=== PATIENT | female | born 1980 | race Hispanic/Latino ===

== ENCOUNTER → 2020-09-30 06:28 | Outpatient (CLI) | payer OTHER, SELFPAY ==
[2020-09-30 20:07] LABS: SARS-CoV-2 RNA PCR Negative
== END ==
PROVIDERS: PCP Physician Assistant; Visit Provider Physician Assistant
DX: Z20.822 Contact with and (suspected) exposure to COVID-19 (principal); R05 Cough; R06.02 Shortness of breath
CPT/HCPCS: C9803; U0003; U0005

== ENCOUNTER 2023-04-14 09:38 | Day surgery (SDC) | payer OTHER, SELFPAY ==
[2023-04-06 09:13] VITALS: BMI 27.3
--- NOTE | 2023-04-12 06:28 | PM.IMHP ---
H&P: HPI History of Present Illness Date/Time: 04/12/23 06:28 Chief Complaint: excessive irregular bleeding refractory to medical therapy Narrative: 42-year-old female with excessive heavy bleeding admitted for hysteroscopy dilatation curettage risks and benefits reviewed including exclusive , aspiration bleeding, transfusion, perforation injury to bowel, bladder, ureters, or other internal organs with need for open laparotomy and repair were all reviewed. She received the [facility] [place] handouts entitled hysteroscopy dilatation curettage respectively. She had all questions and to proceed PMF Surgical History Surgical History No history of previous surgery Social History Social History Smoking status: Former smoker Tobacco type: cigarettes Alcohol intake: current Drinks per week: 2 Alcohol use details: socially once per week Substance use: never Substance use type: does not use Living arrangements: with family Spiritual care concerns: No Meds Home Medications and Allergies Home Medications Medication Instructions Recorded Confirmed Type acetaminophen 300 mg-codeine 30 mg 1 tablet PO QID PRN pain or cough 05/11/22 Rx tablet #25 tabs norgestimate 0.25 mg-ethinyl See Rx Instructions .Route 05/11/22 04/06/23 Rx estradiol 35 mcg tablet (Kalyn) .COMPLEX #28 tabs Allergies Allergy/AdvReac Type Severity Reaction Status Date / Time No Known Allergies Allergy Unknown Verified 04/26/22 14:09 Exam Const: General: cooperative, healthy appearing and comfortable Nutritional Appearance: average body habitus Orientation/consciousness: oriented to person, oriented to place and oriented to time HENMT: Head: normal to inspection Resp: Effort & Inspection: normal respiratory effort Cardio: Rate: regular rate Rhythm: regular rhythm Heart sounds: S1 normal heart sound present and S2 normal heart sound present GI: Inspection: normal to inspection : External Female Exam: normal external appearance Speculum Exam - Vagina: normal appearance of the vagina and vaginal bleeding Speculum Exam - Cervix: normal appearance of the cervix Bimanual exam- vagina & uterus: enlarged Bimanual Exam- Adnexa, other: normal adnexae Assessment and Plan Assessment and plan (1) Heavy vaginal bleeding due to contraceptive implant use: Status: Acute Plan hysteroscopy/dilatation curettage
--- NOTE | 2023-04-13 10:34 | WPDANESEPPF ---
Anes - Initial Pre Proc Eval Procedure: Operation Date: 04/14/23 12:00 Proposed Procedures p Hysteroscopy with Dilation and Curettage, Polypectomy - Tomy Lerner MD Date/Time: 04/13/23 10:34 Surgeon: Tomy Lerner MD Pre Op Diagnosis: Irregular Bleeding, Uterine Polyp Patient Data Age: 42 Gender: F Height: 1.57 m Weight: 68 kg Allergies Allergy/AdvReac Type Severity Reaction Status Date / Time No Known Allergies Allergy Unknown Verified 04/26/22 14:09 Home Medications Medication Instructions Recorded Confirmed Type norgestimate 0.25 mg-ethinyl See Rx Instructions .Route 05/11/22 04/14/23 Rx estradiol 35 mcg tablet (Kalyn) .COMPLEX #28 tabs oxycodone-acetaminophen 5 mg-325 1 tablet PO Q4H PRN pain #10 tabs 04/14/23 Rx mg tablet Patient hx anesthesia problems: none Family hx anesthesia problems: none Results Review: All pre-operative results and documents have been reviewed as part of the pre-operative evaluation. [facility] Surgical History Surgical History No history of previous surgery Social History Social History Smoking status: Former smoker Tobacco type: cigarettes Alcohol intake: current Drinks per week: 2 Alcohol use details: socially once per week Substance use: never Substance use type: does not use Living arrangements: with family Spiritual care concerns: No Anes - Eval Final PreProcedure Day of Procedure 04/13/23 10:34 Patient weight: overweight Heart: regular rate and rhythm Lungs: clear to auscultation Airway: Mallampati scale class II Neurological: alert and oriented Last oral intake: >/= 8 hours ASA classification: II Emergent: no Anesthetic plan: proceed Anesthesia type and monitoring: general GIVS and standard monitoring Results Review: All pre-operative results and documents have been reviewed as part of the pre-operative evaluation. Informed Consent: The patient's anesthetic plan and its attendant risks and benefits were discussed with the patient/family/POA. Questions were solicited and answers provided to the satisfaction of the patient/family/POA.
--- NOTE | 2023-04-14 06:50 | WPDHPUPDATE1 ---
History and Physical Update Update Date/Time: 04/14/23 06:50 History and Physical has been reviewed, including an updated exam of the patient. There are NO changes in the patient's condition. Risks, benefits, and alternatives have been discussed and questions answered. Patient agrees to proceed with procedure.
[2023-04-14] MEDS: LACTATED RINGERS 1,000 ML 30 ML IV CONT (11:03)
[2023-04-14] MEDS: ACETAMINOPHEN 500 MG TABLET 1000 MG PO (11:03)
[2023-04-14 11:09] VITALS: BP 141/89; PULSE 80; RESP 14; TEMP 36.6; O2SAT 99; BMI 28.2
[2023-04-14] MEDS: LIDOCAINE HCL 1% LOCAL INJ 20 ML VIAL 18 ML INFILTRATE (12:16)
--- NOTE | 2023-04-14 12:18 | P.OP_ITS ---
Procedure Note - Detailed Date of Procedure 04/14/23 Pre-op Diagnosis Irregular Bleeding, Uterine Polyp Post-op Diagnosis Same Procedure Performed Hysteroscopy/ dilatation curettage/polypectomy Surgeon Tomy Lerner MD Anesthesia MAC and Local Indications this 42-year-old female with suspected polyp in excessive heavy bleeding Findings normal-appearing endometrial canal with some blood clots and a small endometrial polyp Description of Procedure patient was prepped draped in the normal sterile fashion placed in the dorsal lithotomy position. Under excellent IV sedation weighted speculum placed in p osterior fornix vagina. Anterior lip of the cervix grasped with a single-tooth tenaculum. Cc 1% xylocaine anesthesia placed at 2, 4, 8, 10:00 a.m. the cervix. Uterus sounded to 8cm and 0 station fragmented: Passage of 5mm visualizing hysteroscope. Normal saline was used as visualizing medium. The uterine polyp was seen. The foot each fallopian tube os could be seen. There were some blood clots and irregular endometrium. The uterus was then scraped with [id number] after breaking the polyp up into pieces. The instruments were withdrawn when a good grating sound was heard. Patient went to recovery in satisfactory condition. All sponge, needle, instrument counts were there were no immediate complications Estimated Blood Loss 5 Drains No Pathology Yes Complications No immediate complications Condition Stable Disposition PACU
[2023-04-14 12:23] VITALS: BP 118/74; PULSE 90; RESP 14; O2SAT 98
[2023-04-14 12:45] VITALS: BP 122/89; PULSE 83; RESP 14; O2SAT 96
[2023-04-14 13:10] VITALS: BP 126/79; PULSE 78; RESP 14; O2SAT 97
== END 2023-04-14 13:20 | disposition home or self-care (01) ==
PROVIDERS: PCP Family Medicine Adolescent Medicine; Visit Provider Obstetrics & Gynecology
PROC: 0U5B8ZZ Destruction of Endometrium, Via Natural or Artificial Opening Endoscopic (ICD-10-PCS; CPT 58563; principal; 2023-04-14 12:00)
DX: N92.5 Other specified irregular menstruation (principal); N84.1 Polyp of cervix uteri
CPT/HCPCS: 58558

== ENCOUNTER 2023-04-14 14:48 | Outpatient (NON) | payer OTHER, SELFPAY | END 2023-04-14 14:49 | disposition home or self-care (01) | LOC: ANHLAB 04-15 14:50 | PROVIDERS: PCP Family Medicine Adolescent Medicine; Visit Provider Obstetrics & Gynecology | DX: D25.9 Leiomyoma of uterus, unspecified (principal) | CPT/HCPCS: 88305 ==

== ENCOUNTER 2024-08-23 10:09 | Outpatient (CLI) | payer OTHER, SELFPAY ==
[2024-08-23 10:47] LABS: Alanine Aminotransferase 31 U/L (6-35); Albumin Level 4.9 g/dL (3.5-5.1); Alkaline Phosphatase 84 U/L (38-126); Anion Gap 12 mmol/L (4-12); Aspartate Amino Transferase 35 U/L (14-36); Bilirubin,Total 0.7 mg/dL (0.2-1.3); Blood Urea Nitrogen 9 mg/dL (7-17); Calcium 9.1 mg/dL (8.4-10.2); Carbon Dioxide 23 mmol/L (22-30); Chloride 103 mmol/L (98-107); Cholesterol 277 mg/dL (0-200); Estimated Glomerular Filt Rate > 60; Glucose 95 mg/dL (65-110); HDL Direct 45 mg/dL; Potassium 4.4 mmol/L (3.4-5.0); Sodium 138 mmol/L (137-145); Triglycerides 144 mg/dL (<150)
[2024-08-23 10:58] LABS: LDL Cholesterol Direct 179 mg/dL
[2024-08-23 11:42] LABS: Hepatitis C Virus Antibody Negative (Negative)
[2024-08-23 12:11] LABS: Add Urine Microscopic? YES; Appearance Urine Clear (Clear); Bacteria Urine Rare /hpf; Bilirubin Urine Negative (Negative); Blood Urine Trace (Negative); Color Urine Yellow (Yellow); Glucose Urine UA Negative (Negative); Ketones Urine Negative (Negative); Leukocyte Esterase Ur Negative LEU/UL (Negative); Nitrate Urine Negative (Negative); Non Pathogenic Casts 0-2; Protein Urine Negative (Negative); RBC Urine 0-2 /hpf (0-2); Specific Grav Ur 1.019 (1.001-1.035); Squamous Epithelial Cell Urine Occasional /hpf (Few); Urobilinogen Urine 0.2 mg/dL (<2.0); WBC Urine 0-5 /hpf (0-3); pH Urine 5.5 (5.0-9.0)
[2024-08-23 18:24] LABS: Hemoglobin A1C 5.1 % (<5.7)
== END 2024-08-23 10:10 | disposition home or self-care (01) ==
LOC: ANHLAB 10:11
PROVIDERS: PCP Family Medicine Adolescent Medicine; Visit Provider Family Medicine
DX: R31.9 Hematuria, unspecified (principal); Z13.6 Encounter for screening for cardiovascular disorders; Z13.1 Encounter for screening for diabetes mellitus; Z11.59 Encounter for screening for other viral diseases
CPT/HCPCS: 36415; 80053; 80061; 81001; 83036; 86803

== ENCOUNTER 2024-08-23 10:38 | Outpatient (CLI) | payer OTHER, SELFPAY ==
--- NOTE | ~2024-08-23 | MM_ITS ---
EXAMINATION: MM screening shoaib BI w jeronimo HISTORY: Screening TECHNIQUE: Craniocaudal and mediolateral oblique 3-D tomosynthesis images were obtained and synthetic 2-D images were generated. CAD analysis was submitted and interpreted. COMPARISON: No prior mammogram is available for comparison at this institution. BREAST PARENCHYMAL COMPOSITION: Dense: The breasts are heterogeneously dense, which may obscure small masses FINDINGS: There are focal asymmetries medially in the left breast on CC view, middle-posterior depth. The right breast is stable without evidence for malignancy. IMPRESSION: 1. Left breast asymmetries medially on CC view. 2. Additional mammographic views and possible breast ultrasound are recommended. BI-RADS Category 0: Incomplete: Needs additional imaging evaluation. Reviewed, dictated and finalized at location [facility]. IMPRESSION: 1. Left breast asymmetries medially on CC view. 2. Additional mammographic views and possible breast ultrasound are recommended . BI-RADS Category 0: Incomplete: Needs additional imaging evaluation.
== END 2024-08-23 10:39 | disposition home or self-care (01) ==
LOC: MICIMG 10:39
PROVIDERS: PCP Family Medicine; Visit Provider Family Medicine
DX: Z12.31 Encounter for screening mammogram for malignant neoplasm of breast (principal); N64.89 Other specified disorders of breast
CPT/HCPCS: 77063; 77067

== ENCOUNTER 2024-11-06 08:36 | Outpatient (CLI) | payer OTHER, SELFPAY ==
--- NOTE | ~2024-11-06 | MMUS_ITS ---
EXAMINATION: MM diagnostic shoaib LT w jeronimo, US breast LT limited HISTORY: Left breast asymmetry TECHNIQUE: Additional 3-D tomosynthesis images of the left breast were performed and synthetic 2-D im ages were generated. CAD analysis was submitted and interpreted. High resolution limited left breast ultrasound was performed. COMPARISON: 08/23/2024 BREAST PARENCHYMAL COMPOSITION:Not Dense. There are scattered areas of fibroglandular density. FINDINGS: MAMMOGRAPHIC FINDINGS: Areas of asymmetry in the left breast demonstrate effacement with spot compression. No persistent mas s lesion or distortion. No suspicious microcalcification. ULTRASOUND: No solid or cystic lesion seen at the upper, inner left breast. IMPRESSION: No mammographic or sonographic correlate seen for the area of initial mammographic concern. The area effaces with spot compression, and no sonographic lesion is seen. No evidence for malignancy. BI-RADS Category 1: Negative Reviewed, dictated and finalized at [facility]. IMPRESSION: No mammographic or sonographic correlate seen for the area of initial mammogra phic concern. The area effaces with spot compression, and no sonographic lesion is seen. No evidence for malignancy. BI-RADS Category 1: Negative
== END 2024-11-06 08:37 | disposition home or self-care (01) ==
LOC: MICIMG 08:36
PROVIDERS: PCP Family Medicine; Visit Provider Family Medicine
DX: R92.8 Other abnormal and inconclusive findings on diagnostic imaging of breast (principal)
CPT/HCPCS: 76642; 77061; 77065; G0279